=== PATIENT | female | born 1980 | race Caucasian/White ===

== ENCOUNTER 2019-07-31 17:57 | Emergency (ER) | payer OTHER ==
[~2019-07-31] VITALS: Ht 152.4 cm; Wt 99.8 kg
[2019-07-31] MEDS ORDERED: METFORMIN HCL500 MG PO (18:23)
[2019-07-31] MEDS ORDERED: COZAAR 25 MG TA25 M1 PO (18:23)
[2019-07-31] MEDS ORDERED: JANUVIA25 MG PO (18:23)
[2019-07-31] MEDS ORDERED: LEVEMIR (18:24)
[2019-07-31 18:42] LABS: ABSOLUTE EOSINOPHILS 0.3 thou/uL (0.0-0.7); ABSOLUTE LYMPHOCYTES 2.8 thou/uL (0.8-5.3); ABSOLUTE MONOCYTES 0.6 thou/uL (0.0-1.2); ABSOLUTE NEUTROPHILS 6.8 thou/uL (1.6-8.1); BASOPHILS 0.4 %; EOSINOPHILS 2.8 %; HEMATOCRIT 39.8 % (37.0-47.0); HEMOGLOBIN 13.9 gm/dL (12.0-15.0); MCHC 34.8 g/dL (28.0-37.0); MONOCYTES 5.8 %; MPV 7.3 fl. (7.2-11.1); NUCLEATED RBCS 0 /100WBC; PLATELET COUNT* 287 thou/uL (150-400); RBC 4.47 mil/uL (4.20-5.00); RDW-CV 12.9 % (10.5-14.5); WBC 10.6 thou/uL (4.0-11.0)
[2019-07-31 18:50] LABS: CALCIUM 9.4 mg/dL (8.5-10.1); CREATININE 0.7 mg/dL (0.6-1.3); POTASSIUM 3.7 mmol/L (3.5-5.1)
[2019-07-31 18:54] LABS: ALBUMIN 3.8 g/dL (3.4-5.0); TOTAL BILIRUBIN 0.3 mg/dL (<0.1-1.0); TOTAL PROTEIN 7.8 g/dL (6.4-8.2)
[2019-07-31 21:19] LABS: URINE BILIRUBIN NEGATIVE (Negative); URINE BLOOD NEGATIVE (Negative); URINE CLARITY CLEAR; URINE COLOR YELLOW; URINE GLUCOSE-RANDOM NEGATIVE (Negative); URINE KETONES NEGATIVE (Negative); URINE LEUKOCYTES-REFLEX NEGATIVE (Negative); URINE NITRITE-REFLEX NEGATIVE (Negative); URINE PROTEIN NEGATIVE (Negative); URINE SPECIFIC GRAVITY <= 1.005 (1.005-1.030); URINE UROBILINOGEN 0.2 E.U./dl (0.2-1.0)
[2019-07-31] MEDS ORDERED: BENTYL 20 MG TA20 M1 PO (21:49)
[2019-07-31] MEDS ORDERED: ONDANSETRON HCL4 M2 PO (21:49)
[2019-07-31 22:08] VITALS: BP 143/69
--- NOTE | 2019-08-01 10:14 | EKG ---
[place] [address] ELECTROCARDIOGRAM REPORT Name: HOLGER NEWBY I Room: [facility]#: [id number] Admission: 07/31/19 Attend Phys: Discharge: 07/31/19 Date of : 80 Report #: [id number] THIS REPORT FOR: //name// [facility] ED Test Date: 2019-07-31 Test Time: 19:00:31 Pat Name: HOLGER PECKS Department: Room: Gender: F [employer]: [place] : 1980 Requested By: Purnima Taylor Order Number: [id number] MD: Wm Butler Measurements Intervals [place] Rate: 78 P: 26 TN: 160 QRS: 40 QRSD: 89 T: 23 QT: 385 QTc: 439 Interpretive Statements Sinus rhythm No previous ECG available for comparison Electronically Signed On 08-01-2019 10:14:16 CDT by Wm Butler [email or web address] <ELECTRONICALLY SIGNED> By: Wm Butler MD, [facility] 08/01/19 1014 1900 1900 Wm Butler MD, FACC /EPI
== END 2019-07-31 22:09 | disposition home or self-care (01) ==
LOC: M.ERS 17:57
PROVIDERS: Nurse Practitioner Family
DX: N83.202 Unspecified ovarian cyst, left side (principal); R19.7 Diarrhea, unspecified; E11.9 Type 2 diabetes mellitus without complications; I10 Essential (primary) hypertension; Z79.4 Long term (current) use of insulin; Z90.711 Acquired absence of uterus with remaining cervical stump

== ENCOUNTER → 2019-08-03 | Outpatient (CLI) | payer OTHER ==
[~2019-08-03] MED LIST: BENTYL 20 MG TA20 M1 PO; COZAAR 25 MG TA25 M1 PO; JANUVIA25 MG PO; LEVEMIR; METFORMIN HCL500 MG PO; ONDANSETRON HCL4 M2 PO
[2019-08-03 15:20] LABS: ALBUMIN 3.7 g/dL (3.4-5.0); CALCIUM 8.8 mg/dL (8.5-10.1); CREATININE 0.8 mg/dL (0.6-1.3); POTASSIUM 3.9 mmol/L (3.5-5.1); TOTAL BILIRUBIN 0.3 mg/dL (<0.1-1.0); TOTAL PROTEIN 7.4 g/dL (6.4-8.2)
[2019-08-04 02:06] LABS: GLYCOHEMOGLOBIN (HGB A1C) 6.6 % (4.8-5.6)
== END ==
LOC: M.LAB 14:37
PROVIDERS: Nurse Practitioner Family
DX: E11.8 Type 2 diabetes mellitus with unspecified complications (principal); I10 Essential (primary) hypertension; Z79.4 Long term (current) use of insulin